=== PATIENT | female | born 1990 | race Caucasian/White ===

== ENCOUNTER 2025-03-07 12:39 | Outpatient (CLI) | payer OTHER, SELFPAY | END 2025-03-07 12:40 | disposition home or self-care (01) | LOC: NFLDREF 03-08 20:43 | PROVIDERS: Visit Provider Nurse Practitioner Family | DX: R10.20 Pelvic and perineal pain unspecified side (principal) | CPT/HCPCS: 87086 ==

== ENCOUNTER 2025-03-25 12:55 | Outpatient (CLI) | payer OTHER, SELFPAY ==
[2025-03-28 05:25] LABS: HPV Source Cervical
[2025-04-01 08:41] LABS: Pap Test Digital Imaging Done
== END 2025-03-25 12:56 | disposition home or self-care (01) ==
PROVIDERS: Registered Nurse; Visit Provider Obstetrics & Gynecology
DX: Z12.4 Encounter for screening for malignant neoplasm of cervix (principal); Z34.92 Encounter for supervision of normal pregnancy, unspecified, second trimester
CPT/HCPCS: 83020; 83021; 85660; 86787; 87624; 87625; 88141; 88142; 88175

== ENCOUNTER 2025-04-15 12:08 | Outpatient (CLI) | payer OTHER, SELFPAY | END 2025-04-15 12:09 | disposition home or self-care (01) | LOC: US 12:09 | PROVIDERS: Visit Provider Physician Assistant | DX: O09.522 Supervision of elderly multigravida, second trimester (principal); Z3A.20 20 weeks gestation of pregnancy | CPT/HCPCS: 76811 ==